=== PATIENT | female | born 2000 | race Two or more races ===

== ENCOUNTER 2022-01-27 21:29 | Emergency (ER) | payer OTHER ==
[~2022-01-27] VITALS: Ht 167.6 cm; Wt 56.2 kg
[2022-01-27] MEDS ORDERED: DICLOFENAC SODI75 MG PO (23:38)
== END 2022-01-28 02:05 | disposition home or self-care (01) ==
LOC: ER 21:29 → EMR PED 21:29
DX: R10.2 Pelvic and perineal pain (principal); N94.6 Dysmenorrhea, unspecified